=== PATIENT | male | born 1970 | race Caucasian/White ===

== ENCOUNTER 2018-05-29 08:45 | Emergency (ER) | payer MEDICARE ==
[2018-05-29] MEDS ORDERED: DEXAMETHASONE SOD PHOSPHATE 10MG/ML 1ML VIAL ONE (09:01)
[2018-05-29] MEDS ORDERED: DIPHENHYDRAMINE HCL 25 MG CAPSULE ONE (09:02)
== END 2018-05-29 09:17 | disposition home or self-care (01) ==
LOC: EDH 08:45
DX: L03.213 Periorbital cellulitis (principal); Z72.0 Tobacco use; Z79.2 Long term (current) use of antibiotics
CPT/HCPCS: 96372; 99283; J1100; Q0163